=== PATIENT | male | born 1995 | race Caucasian/White ===

== ENCOUNTER → 2021-08-14 | Outpatient (CLI) | payer MEDICARE, OTHER ==
[2021-08-14 10:38] LABS: Basophils # (A) 0.1 k/uL (0-0.2); Basophils % (A) 1 %; Eosinophils # (A) 0.1 k/uL (0-0.7); Eosinophils % (A) 1 %; HCT 54.8 % (39.0-53.0); Lymphocytes # (A) 2.3 k/uL (1.0-4.8); Lymphocytes % (A) 36 %; MCH 31.2 pg (25.0-35.0); MCHC 32.9 g/dL (31.0-37.0); MCV 94.8 fL (80.0-100.0); Mean Platelet Volume 8.2; Monocytes # (A) 0.5 k/uL (0-1.0); Monocytes % (A) 8 %; Neutrophils # (A) 3.3 k/uL (1.3-7.7); Neutrophils % (A) 52 %; Platelet Count 251 k/uL (150-450); RBC 5.78 m/uL (4.30-5.90); RDW 12.1 % (11.5-15.5); WBC 6.5 k/uL (3.8-10.6)
[2021-08-14 10:49] LABS: ALT 39 U/L (4-49); AST 38 U/L (17-59); African American GFR (CKD) >90 (>60 ml/min/1.73 sqM); Albumin 4.6 g/dL (3.5-5.0); Alkaline Phosphatase 57 U/L (38-126); Anion Gap 10 mmol/L; Blood Urea Nitrogen 15 mg/dL (9-20); Calcium 10.1 mg/dL (8.4-10.2); Carbon Dioxide 28 mmol/L (22-30); Chloride 103 mmol/L (98-107); Glucose 93 mg/dL (74-99); Non-African American GFR(CKD) >90 (>60 ml/min/1.73 sqM); Potassium 4.7 mmol/L (3.5-5.1); Sodium 141 mmol/L (137-145); Total Bilirubin 0.6 mg/dL (0.2-1.3); Total Protein 8.1 g/dL (6.3-8.2)
--- NOTE | 2021-08-14 11:19 | CT ---
EXAMINATION TYPE: CT angio head DATE OF EXAM: 08/14/2021 10:49 AM COMPARISON: MRI brain October 27, 2010 and August 03, 2021 HISTORY: seizure disorder, sleep disorder CT DLP: 1917.2 mGycm Automated exposure control for dose reduction was used. TECHNIQUE: Performed without and with IV Contrast, patient injected with 100 mL of Isovue 370. 3D reconstructed images are created on an independent workstation and reviewed.. FINDINGS: Noncontrast images show no acute cranial hemorrhage or midline shift. Stable slight prominence of CSF in the midline of the inferior posterior aspect posterior fossa consistent with Stella cisterna magna. Ventricles and sulci are normal in size. Tariq-white matter differentiation is maintained. Globes are intact and visualized sinuses are clear. CTA images show vertebral arteries patent to basilar junction with dominant left vertebral artery red emonstrated. There are hypoplastic bilateral posterior communicating arteries. There is no significan t focal stenosis or aneurysm in the posterior circulation. Anterior circulation shows small caliber but patent anterior communicating artery. There is no signif icant focal stenosis or aneurysm in the anterior circulation. IMPRESSION: No aneurysm identified at the level of the [place].
[2021-08-14 12:00] LABS: Appearance,Urine Clear (Clear); Bilirubin,Urine Negative (Negative); Blood,Urine Negative (Negative); Color,Urine Light Yellow; Glucose,Urine (UA) Negative (Negative); Ketones,Urine Negative (Negative); Leukocyte Esterase,Urine Negative (Negative); Nitrite,Urine Negative (Negative); Protein,Urine Negative (Negative); Specific Gravity,Urine 1.011 (1.001-1.035); Urobilinogen,Urine <2.0 mg/dL (<2.0)
--- NOTE | 2021-08-14 13:17 | EEG ---
ELECTROENCEPHALOGRAM REPORT DATE OF SERVICE: 08/14/2021. CLINICAL HISTORY: This is a 25-year-old gentleman with reported history of seizures who continues to have seizure-like activity. The video EEG is obtained to evaluate for seizure epileptiform activity. RELEVANT MEDICATION: Depakote and lorazepam, according to the chart. EEG TYPE: A routine 21-channel EEG is performed with video using the 10/20 electrode placement system. DESCRIPTION: Wakefulness is only obtained. During wakefulness, the posterior-dominant rhythm consists of low to moderate voltage that is well modulated and well sustained of 9.5- 10.5 hertz activity. There is no physiological stage 2 sleep architecture. Interictal and ictal is none. ACTIVATION PROCEDURE: Photic stimulation did evoke a posterior driving response at multiple flash frequencies. There is no abnormality during the photic stimulation. Hyperventilation: There is no abnormality during the hyperventilation. CLINICAL INTERPRETATION: This is a normal routine EEG. There is no focal slowing, epileptiform discharges or seizure on the EEG. Clinical correlation is recommended. RECOMMENDATION: If there continues to be a concern for seizure, recommend a 2-1/2-hour ambulatory EEG. MMKRISL / IJN: [id number] / [id number]
[2021-08-15 03:50] LABS: Chol/HDL Ratio 5.54 Ratio; LDL Cholesterol,Calculated 156.8 mg/dL (0.0-131.0)
== END ==
LOC: NEUROMAIN 08:04
PROVIDERS: ATTEND Family Medicine
DX: G40.909 Epilepsy, unspecified, not intractable, without status epilepticus (principal); G47.00 Insomnia, unspecified
CPT/HCPCS: 95816; 80061; 80053; 84443; 85025; 81003; 70496; 36415; Q9967